=== PATIENT | male | born 1950 | race Caucasian/White ===

== ENCOUNTER 2024-06-09 07:18 | Day surgery (SDC) | payer MEDICARE, SELFPAY ==
[2024-06-09] VITALS (11 sets, daily range): BP systolic 105–157; BP diastolic 58–94; BMI 25.1
[2024-06-09] MEDS: NSS 206 ML IV (07:42)
[2024-06-09] MEDS: LOW STRENGTH ASPIRIN 324 MG PO (07:43)
[2024-06-09] MEDS: NSS 1000 IV (09:38)
--- NOTE | 2024-06-09 17:42 | ITS.CL.CATH ---
[facility] - Catheterization
Cardiac Catheterization
Procedure Report:
CARDIAC CATHETERIZATION REPORT
Date of Procedure: 06/09/2024
Referring: Ramona Ruby MD
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
�
HEMODYNAMIC DATA
AO: 142/68
LV: 142/18
�
LEFT VENTRICULOGRAPHY: Not performed
�
CORONARY ANGIOGRAPHY
Dominance: Right
Left Main: Occluded at origin (unchanged versus 08/2022)
LAD: The LAD fills via widely patent left internal mammary artery graft which touches down in the mid LAD. There is no significant disease distal to the touchdown site and there is backfilling to the supply a large diagonal branch. There are
collaterals from the conus branch of the RCA over to the very proximal LAD
Circumflex: The first obtuse marginal branch of the circumflex fills via the patent vein graft with no significant disease distal to the touchdown site. There is backfilling to the origin of OM1 but not into the circumflex proper. This appearance
was also present on the prior study
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 The vein graft to the PDA remains occluded. There are septal collaterals from the LAD to with diffusely diseased small RPDA.
Bypass grafts:
1. Left internal mammary graft to the LAD is widely patent with good runoff
2. The vein graft to OM1 is widely patent with good runoff
3. The vein graft to the RPDA is occluded-this was noted on the prior study from August 2022 as well
�
Closure Device: 6 [place] Angio-Seal RFA
�
Radiation (mGy): 181
DAP (cm2.Gy): 16.4
Fluoroscopy time: 5.8 minutes
�
CONCLUSIONS
1:�Systemic hypertension
2:�Occluded [place] coronaries with patent BADILLO-LAD and patent SVG-OM1 bypass grafts
3. Anatomy essentially unchanged compared with the prior study from August 2022
�
�
Copy to: Ramona Ruby MD and Christiano Canales MD
�
Sudhakar Collado MD, [facility], [facility]
== END 2024-06-09 12:40 | disposition home or self-care (01) ==
LOC: CATH 07:18
PROVIDERS: ATTENDING PHYSICIAN Internal Medicine Cardiovascular Disease; FAMILY PHYSICIAN Family Medicine; OTHER PHYSICIAN Internal Medicine Cardiovascular Disease
DX: I25.10 Atherosclerotic heart disease of native coronary artery without angina pectoris (principal); I25.810 Atherosclerosis of coronary artery bypass graft(s) without angina pectoris; R94.39 Abnormal result of other cardiovascular function study; I10 Essential (primary) hypertension; Z95.1 Presence of aortocoronary bypass graft
CPT/HCPCS: 93005; 93459; C1894